=== PATIENT | female | born 1990 | race Two or more races ===

== ENCOUNTER 2025-03-07 13:34 | Emergency (ER) | payer OTHER ==
[~2025-03-07] VITALS: Ht 175.3 cm; Wt 59.9 kg
[2025-03-07] MEDS ORDERED: KETOROLAC TROMETHAMINE 60 MG VIAL IM ONE (14:00)
[2025-03-07] MEDS ORDERED: CEFTRIAXONE SODIUM 1,000 MG VIAL IM ONE (14:00)
[2025-03-07 14:23] LABS: BASO % 0.4 % (0.1-1.2); EOS # 0.09 (0.04-0.54); EOS % 0.8 % (0.7-7.0); LYMPH # 2.17 (1.18-3.74); LYMPH % 18.9 % (19.3-53.1); MEAN PLATELET VOLUME 10.70 fl (9.4-12.4); MONO # 0.70 (0.24-0.82); MONO % 6.1 % (4.7-12.5); NEUT # 8.44 (1.56-6.13); NEUT % 73.5 % (34.0-71.1); RED CELL DISTRIBUTION WIDTH 13.4 % (11.6-14.4)
[2025-03-07] MEDS ORDERED: NORFLEX100MG PO (15:09)
[2025-03-07] MEDS ORDERED: KETO10TA2 PO (15:09)
[2025-03-07] MEDS ORDERED: AZITHROMYCIN500 MG PO (15:09)
[2025-03-07] MEDS ORDERED: PEPCID AC20 MG PO (15:09)
== END 2025-03-08 18:19 | disposition home or self-care (01) ==
LOC: ER 13:34
PROVIDERS: General Practice
DX: K13.79 Other lesions of oral mucosa (principal); R53.81 Other malaise